=== PATIENT | female | born 1970 | race Caucasian/White ===

== ENCOUNTER 2024-03-02 07:41 | Inpatient (IN) | payer BC, SELFPAY ==
[2024-03-02] VITALS (31 sets, daily range): BP systolic 117–153; BP diastolic 63–85; PULSE 81–107; RESP 14–20; TEMP 36.8–38.1; O2SAT 93–100; BMI 25.1
--- OUTSIDE RECORDS SUMMARY | 2024-03-02 07:44 | XMS_ITS | Clinical Summary ---
Author Organization [facility] Address [address] [place] [address]. [place] [address] Care Team Providers Care Hydrant Setter Name Role Phone Clinic, [facility] Primary Care Provider + Allergies No known active allergies Medications Multiple vitamin TABS 1 tab daily 5 Active levonorgestrel (MIRENA, 52 MG,) 20 MCG/24HR IUDIndications: Encounter for insertion of Mirena IUD 1 each (20 mcg) by Intrauterine route once for 1 dose 1 each 8 Active Active Problems No known active problems Immunizations Name Administration Dates Next Due Tdap (Adult) Unspecified Formulation 06/05/2008 Family History Medical History Relation Comments Hypertension Mother Relation Status Comments Father Alive Mother Alive Social History Tobacco Use Types Packs/Day Years Used Date Smoking Tobacco: Never Smokeless Tobacco: Never Alcohol Use Standard Drinks/Week Comments Yes 0 (1 standard drink = 0.6 oz pur e alcohol) occ PHQ-2 Answer Date Recorded PHQ-2 Score 0 02/26/2018 Adolescent Education Answer Date Record ed Getting School Help Needed Not on file 11/25 Comments No Sex and Gender Information Value Date Recorded Sex Assigned at Not on file Legal Sex Female 3:36 AM CIRCUIT BOARD INSPECTOR Gender Identity Not on file Sexual Orientation Not on file Last Filed Vital Signs Vital Sign Reading Time Taken Comments Blood Pressure 154/110 02/20/2023 10:19 AM CIRCUIT BOARD INSPECTOR Pulse 69 02/20/2023 10:19 AM CIRCUIT BOARD INSPECTOR Temperature 37 C (98.6 F) 02/20/2023 10:19 AM CIRCUIT BOARD INSPECTOR Respiratory Rate 18 02/20/2023 10:19 AM CIRCUIT BOARD INSPECTOR Oxygen Saturation 100% 02/20/2023 10:19 AM CIRCUIT BOARD INSPECTOR Inhaled Oxygen Concentration - - Weight 85.7 kg (188 lb 15 oz) 02/20/2023 10:19 A M CIRCUIT BOARD INSPECTOR Height 172.7 cm (5' 8) 04/30/2017 8:45 AM CDT Body Mass Index 28.73 04/30/2017 8:45 AM CDT Plan of Treatment Health Maintenance Due Date Last Done Comments ADVANCE CARE PLANNING 1969 ANNUAL REVIEW OF HM ORDERS 1969 CT COLONOGRAPHY 1969 FIT 1969 FLEX SIG 1969 GLUCOSE 1969 sDNA (Cologuard) 1969 HIV SCREENING 1984 HEPATITIS C SCREENING 11/09/1987 HEPATITIS B IMMUNIZATION (1 of 3 - 19+ 3-dose series) 1988 LIPID 2009 DTAP/TDAP/TD IMMUNIZATION (2 - Td or Tdap) 06/05/2018 06/05/2008, 06/05/2008, 11/09/1998 Pneumococcal Vaccine: 50+ Years (1 of 1 - PCV) 11/09/2019 ZOSTER IMMUNIZATION (1 of 2) 11/09/2019 YEARLY PREVENTIVE VISIT 07/06/2023 07/06/19 23, 11/18/2020, 02/08/2017 COVID-19 Vaccine ( - season) 2023 01/25/2021, 07/16/2020, 07/16/2020, Additional history exists INFLUENZA VACCINE (#1) 2023 1, 12/14/2009, 11/16/2008 MAMMO SCREENING 12/29/2023 12/28/2021 PHQ-2 (once per calendar year) 2024 02/08/2017 PAP 07/05/2025 07/05/2022, 02/08/2017 COLONOSCOPY 02/08/2031 02/08/2021 COLORECTAL CANCER SCREENING 02/08/2031 RSV VACCINE (1 - 1-dose 75+ series) 2044 HPV IMMUNIZATION Aged Out No longer e ligible based on patient's age to complete this topic MENINGITIS IMMUNIZATION Aged Out No l onger eligible based on patient's age to complete this topic RSV MONOCLONAL ANTIBODY Aged Out No l onger eligible based on patient's age to complete this topic Procedures Procedure Name Priority Date/Time Associated Diagnosis Comments PAP IMAGED THIN LAYER SCREEN Routine 02/08/2017 8:24 AM CIRCUIT BOARD INSPECTOR Routine general medical examination at a health care facility from Last 3 Months or Most Recently Relevant to Health Maintenance Results * Pap imaged thin layer screen with HPV - recommended age 30 - 65 years (select HPV order below) (02/08/2017 8:24 AM CIRCUIT BOARD INSPECTOR) PAP NIL COPATH Copath Report Patient Name: LUIS FERNANDO MCWILLIAMS MR#: [id number] Specimen #: [id number] Collected: 02/08/2017 Received: 02/09/2017 Reported: 02/13/2017 10:04 Ordering Phy(s): CHENCHO NAIR For improved result formatting, select 'View Enhanced Report Format' under Linked Documents section. SPECIMEN/STAIN PROCESS: Pap imaged thin layer prep screening (Surepath, FocalPoint with guided screening) Pap-Cyto x 1 SOURCE: Cervical, endocervical Pap imaged thin layer prep screening (Surepath, FocalPoint with guided screening) SPECIMEN ADEQUACY: Satisfactory for evaluation. -Transformation zone component absent. CYTOLOGIC INTERPRETATION: Negative for intraepithelial lesion or malignancy Electronically signed out by: ADOLFO Hall (ASCP) Processed and screened at [facility], [facility] CLINICAL HISTORY: Currently not having periods, Intra-Uterine Device, Papanicolaou Test Limitations: Cervical cytology is a screening test with limited sensitivity; regular screening is critical for cancer prevention; Pap tests are primarily effective for the diagnosis/preventi on of squamous cell carcinoma, not adenocarcinomas or other cancers. TESTING LAB LOCATION: [address] [address] COLLECTION SITE: Client: [facility] Location: [facility] (R) TYRESE Cytologic material (specimen) 02/08/2017 8:24 AM CIRCUIT BOARD INSPECTOR 02/09/2017 9:37 AM CIRCUIT BOARD INSPECTOR Chencho Nair MD LAB - [facility] Final Result COPATH from Last 3 Months or Most Recently Relevant to Health Maintenance Insurance BCBS OUT OF STATE BCBS OUT OF [facility] Care Teams Hydrant Setter Relationship Specialty Start Date End Date [facility], [facility] [address] [place] [phone] PCP - General 02/20/23
--- OUTSIDE RECORDS SUMMARY | 2024-03-02 07:44 | XMS_ITS | Continuity of Care Document ---
Author Name [facility] User [email or web address] Address Unknown Organization Unknown Address Unknown Encounters FILTER APPLIED:Only known Encounters with Admission Date within the last 5 years Encounter Location Admission Discharge Billing Code Stand Up Comedian Deshaun elizabeth [facility]
--- OUTSIDE RECORDS SUMMARY | 2024-03-02 07:44 | XMS_ITS | Referral Summary ---
Author Organization [facility] Address [address] [place] [address]. [place] [address] Care Team Providers Care Ventilation Equipment Tender Name Role Phone [facility] [place] Primary Care Provider + Allergies No known active allergies Medications Multiple vitamin TABS 1 tab daily 5 Active levonorgestrel (MIRENA, 52 MG,) 20 MCG/24HR IUDIndications: Encounter for insertion of Mirena IUD 1 each (20 mcg) by Intrauterine route once for 1 dose 1 each 8 Active Active Problems No known active problems Immunizations Name Administration Dates Next Due Tdap (Adult) Unspecified Formulation 06/05/2008 Social History Tobacco Use Types Packs/Day Years [...] on file Legal Sex Female 3:36 AM DIRECTOR OF SCIENTIFIC RESEARCH Gender Identity Not on file Sexual Orientation Not on file Last Filed Vital Signs Vital Sign Reading Time Taken Comments Blood Pressure 154/110 02/20/2023 10:19 AM DIRECTOR OF SCIENTIFIC RESEARCH Pulse 69 02/20/2023 10:19 AM DIRECTOR OF SCIENTIFIC RESEARCH Temperature 37 C (98.6 F) 02/20/2023 10:19 AM DIRECTOR OF SCIENTIFIC RESEARCH Respiratory Rate 18 02/20/2023 10:19 AM DIRECTOR OF SCIENTIFIC RESEARCH Oxygen Saturation 100% 02/20/2023 10:19 AM DIRECTOR OF SCIENTIFIC RESEARCH Inhaled Oxygen Concentration - - Weight 85.7 kg (188 lb 15 oz) 02/20/2023 10:19 A M DIRECTOR OF SCIENTIFIC RESEARCH Height 172.7 cm (5' 8) 04/30/2017 8:45 AM CDT Body Mass Index 28.73 04/30/2017 8:45 AM CDT Plan of Treatment Not on file Procedures Procedure Name Priority Date/Time Associated Diagnosis Comments PAP IMAGED THIN LAYER SCREEN Routine 02/08/2017 8:24 AM DIRECTOR OF SCIENTIFIC RESEARCH Routine general medical examination at a health care facility from Last 3 Months or Most Recently Relevant to Health Maintenance Results * Pap imaged thin layer screen with HPV - recommended age 30 - 65 years (select HPV order below) (02/08/2017 8:24 AM DIRECTOR OF SCIENTIFIC RESEARCH) PAP LINDA Reed Report Patient Name: LUIS FERNANDO MCWILLIAMS MR#: [id number] Specimen #: [id number] Collected: 02/08/2017 Received: 02/09/2017 Reported: 02/13/2017 10:04 [...] ADOLFO Hall (ASCP) Processed and screened at [facility] CLINICAL HISTORY: Currently not having periods, Intra-Uterine Device, Papanicolaou Test Limitations: Cervical cytology is a screening test with limited sensitivity; regular screening is critical for cancer prevention; Pap tests are primarily effective for the diagnosis/preventi on of squamous cell carcinoma, not adenocarcinomas or other cancers. TESTING LAB LOCATION: [facility] [address] [id number] COLLECTION SITE: Client: [facility] Location: [facility] (R) COPATH Cytologic material (specimen) 02/08/2017 8:24 AM DIRECTOR OF SCIENTIFIC RESEARCH 02/09/2017 9:37 AM DIRECTOR OF SCIENTIFIC RESEARCH Chencho Nair MD LAB - [facility] SPE RENEE Final Result COPATH from Last 3 Months or Most Recently Relevant to Health Maintenance Insurance BCBS OUT OF STATE BCBS OUT OF STATE Care Teams Ventilation Equipment Tender Relationship Specialty Start Date End Date Clinic, [facility] [address] [place] [address] PCP - General 02/20/23
--- OUTSIDE RECORDS SUMMARY | 2024-03-02 07:44 | XMS_ITS | Encounter Summary ---
Author Organization [facility] Address [address] [place] [address]. [place] [address] Care Team Providers Care Purification Supervisor Name Role Phone Iliana Nair MD Primary Care Provider [phone] Iliana Nair MD Unavailable [phone] [facility] Primary Care Provider + Reason for Visit * Reason Onset Date Comments Outreach 12/02/2018 [facility] MAMMO ATT 1 Encounter Details Date Type Department Care Team (Late st Contact Info) Description 12/02/2018 Telephone [facility] Centralized Scheduling [address] [place] [address] [place] [address] [place] [address] Outreach ([facility] MAMMO ATT 1) Social History Tobacco Use Types Packs/Day Years Used Date Smoking Tobacco: Never Smokeless Tobacco: Never Alcohol Use Standard Drinks/Week Comments Yes 0 (1 standard drink = 0.6 oz pur e alcohol) occ PHQ-2 Answer Date Recorded PHQ-2 Score 0 02/26/2018 Comments No Sex and Gender Information Value Date Recorded Sex Assigned at Not on file Legal Sex Female 3:36 AM BOXING INSTRUCTOR Gender Identity Not on file Sexual Orientation Not on file documented as of this encounter Miscellaneous Notes * Telephone Encounter - Janiya Grajeda - 12/02/2018 4:38 PM CDT 12/02/2018 Attempt 1 Contacted patient in regards to scheduling VIP mammogram, [place] for 12/09. Message on voicemail Patient is also due for - Comments: Outreach [facility] [employer] Caller KEYLA documented in this encounter Plan of Treatment Not on file documented as of this encounter Visit Diagnoses Not on filedocumented in this encounter Care Teams Purification Supervisor Relationship Specialty [place] [address] [place] [address] PCP - General Family Practice 02/08/17 02/19/[address] [phone] PCP - General 02/20/23 [place] [address] [place] [address] Assigned PCP 02/11/17 02/28/20 documented as of this encounter
--- NOTE | 2024-03-02 08:17 | CRLHL7_ITS ---
For Patients: As a result of the Century Cures Act, medical imaging exams and procedure reports are released immediately into your electronic medical record. You may view this report before your referring provider. If you have questions, please contact your health care provider. INDICATION: Abdominal pain. TECHNIQUE: CT abdomen and pelvis acquired with IV contrast. 81 mL IV Isovue 370. COMPARISON: None available. FINDINGS: Lower chest: Mild atelectasis in the lung bases. Liver: The liver is enlarged measuring 17.7 cm in length but normal in attenuation. No focal liver lesion. Gallbladder and bile ducts: Unremarkable. Spleen: Unremarkable. Pancreas: The pancreatic duct is dilated in the head and proximal body of the pancreas measuring up to 9 mm in diameter. No visible pancreatic or intraductal mass. Adrenal glands: Unremarkable. Kidneys: 2 mm nonobstructing stone in the mid right kidney. No hydronephrosis. There are a few subcentimeter hypoattenuating renal lesions too small to accurately characterize. There are few left renal parapelvic cysts. GI tract: The appendix is dilated measuring up to 13 millimeters in diameter with moderate Lori appendiceal fat stranding. Appendicoliths are present. No surrounding free fluid or free air. There are few scattered colonic diverticuli. No evidence of acute diverticulitis. No bowel obstruction. Vascular structures: Normal caliber abdominal aorta. Lymph nodes: Unremarkable. Miscellaneous: No ascites. No free air. Pelvic Organs: Unremarkable. Bones: Mild degenerative changes in the hips. No acute osseous abnormality. No suspicious bone lesion. IMPRESSION: 1. Acute uncomplicated appendicitis. 2. The pancreatic duct is dilated in the head and body of the pancreas. Recommend follow-up with dedicated pancreatic MRI/MRCP to exclude an obstructing lesion. 3. Hepatomegaly. Please note that all CT scans at this facility use dose modulation, iterative reconstruction, and/or weight-based dosing when appropriate to reduce radiation dose to as low as reasonably achievable. Dictated by Yanelis Ruiz MD @ 03/02/2024 9:48:56 AM (Electronically Signed)
--- NOTE | 2024-03-02 08:19 | ED_ITS ---
HPI - Abdominal Pain General Date Seen: 03/02/24 Chief Complaint: Abdominal Pain Stated Complaint: abdominal pain/12 hours Time Seen by Provider: 03/02/24 07:57 Source: patient Mode of arrival: ambulatory Limitations: no limitations History of Present Illness HPI narrative: Patient is a 53-year-old female presenting to the emergency department for abdominal pain. She states last night she started having periumbilical abdominal pain that has since radiated to her right lower quadrant. She denies ever having symptoms like this before. States she has not been able to sleep much due to the pain. Nothing seems to make it better. Does have some mild upper abdominal pain on the right side but states that definitely worse on the lower aspect. Denies vomiting but is having waves of nausea. Has not ate anything since 18:00 yesterday. Has had a previous ovarian cyst procedure but no other abdominal or pelvic surgeries. Denies constipation, diarrhea, chest pain, shortness of breath, weakness, numbness, fevers, chills, fatigue, dysuria, vaginal bleeding or discharge. Does states she is tired but that is because she has not slept. Denies pain like this before. No other concerns noted. Related Data Home Medications ?Medication ?Instructions ?Recorded ?Confirmed estradiol 0.05 mg-norethindrone 1 patch topical 2XW 03/02/24 03/02/24 0.14 mg/24 hr semiwkly transderm patch (CombiPatch) Allergies Allergy/AdvReac Type Severity Reaction Status Date / Time No Known Drug Allergies Allergy Verified 03/02/24 07:50 Review of Systems Status of ROS Reports: 10 or more systems reviewed and unremarkable except as noted in History and below [facility] Social History Smoking Status: Never smoker Do you use any of these nicotine containing products: None How often do you have a drink containing alcohol: never AUDIT-C Alcohol total score: 0 Non-prescribed substance use: denies use Exam Narrative: Exam Narrative: Const: Well-nourished, Well-developed, in mild distress Eyes: PERRL, no conjunctival injection, and symmetrical lids HENT: Atraumatic external nose and ears. Moist mucous membranes. Neck: Symmetric, trachea midline, No thyromegaly. CVS: RRR, No murmurs or gallops. Peripheral pulses 2+ and equal in all extremities RESP: Unlabored respiratory effort. Clear to auscultation bilaterally. GI: Notable Tenderness to the periumbilical and right lower quadrant along with some mild tenderness to the epigastric and right upper quadrant. Guarding noted. Positive McBurney's point. Nondistended. No rebound. MSK:Extremities w/o deformity, Normal Active ROM Skin: Warm, Dry. No rashes or lesions. Neuro: Normal Muscle tone, No focal neurological deficits. Psych: Awake, Alert, & Oriented x3. Appropriate mood and affect. Const: Vital Signs, click to edit/add: Vital Signs - 24 hr 03/02/24 07:44 03/02/24 09:33 Temperature 99.0 F Pulse Rate [Right Pulse Oximeter] 89 81 Respiratory Rate 18 18 Blood Pressure [Ri ght Upper Arm] 136/85 140/75 H Pulse Oximetry 99 97 Oxygen Delivery Me thod Room Air Room Air Course Vital Signs Vital signs: Initial Vital Signs Temperature 99.0 F 03/02/24 07:44 Temperature Source Temporal Artery Scan 03/02/24 07:44 Pulse Rate 89 03/02/24 07:44 Respiratory Rate 18 03/02/24 07:44 Blood Pressure 136/85 03/02/24 07:44 Blood Pressure Mean 102 03/02/24 07:44 Blood Pressure Position Sitting 03/02/24 07:44 Pulse Oximetry 99 03/02/24 07:44 Oxygen Delivery Method Room Air 03/02/24 07:44 Vital Signs Temperature 99.0 F 03/02/24 07:44 Pulse Rate 89 03/02/24 07:44 Respiratory Rate 18 03/02/24 07:44 Blood Pressure 136/85 03/02/24 07:44 Pulse Oximetry 99 03/02/24 07:44 Oxygen Delivery Method Room Air 03/02/24 07:44 Temperature 99.0 F 03/02/24 07:44 Pulse Rate 81 03/02/24 09:33 Respiratory Rate 18 03/02/24 09:33 Blood Pressure 140/75 H 03/02/24 09:33 Pulse Oximetry 97 03/02/24 09:33 Oxygen Delivery Method Room Air 03/02/24 09:33 Medications Administered Medications: Discontinued Medications Generic Name Dose Route Start Last Admin Trade Name Freq PRN Reason Stop Dose Admin Morphine Sulfate 4 mg 03/02/24 08:17 03/02/24 08:36 Morphine 4 Mg/Ml Inj IVP 03/02/24 08:18 4 mg ONCE ONE Administration Ondansetron HCl 4 mg 03/02/24 08:17 03/02/24 08:36 Ondansetron 2 Mg/Ml Inj IVP 03/02/24 08:18 4 mg ONCE ONE Administration MDM - Abdominal Pain MDM Narrative Medical decision making narrative: Patient is a 53-year-old female presenting for abdominal pain. My my concern at this time is appendicitis. Differential also includes SBO, gallbladder/liver disease, pancreatitis, gastroenteritis, colitis, constipation. Will do a CBC, CMP, urinalysis, lipase. Will also order a troponin and EKG as this could be abnormal presentation for ACS. Will give her morphine for pain and Zofran for n ausea. CT scan with IV contrast of the abdomen pelvis ordered Lab work returns with a white count of 14.91. No other concerning finding seen within lab work. Viral swabs were negative. EKG and troponin showed no concerning finding. Considering the length of symptoms I do not believe repeat troponin is necessary. CT scan returned showing acute uncomplicated appendicitis. She also has a dilated pancreatic duct. Radiology does recommend MRCP. Considering all the patient's pain is in the lower abdomen and normal lipase and normal LFTs seems unlikely to be an acute obstruction if any. She did have some very mild upper abdominal tenderness but this pain seemed more referred pain from her lower abdomen than and acute separate pain in the area. She even states that is much less painful up in her epigastric compared to her periumbilical and right lower quadrant. The on-call surgeon recommends outpatient MRCP. I informed the patient of this. Lab Data Labs: Lab Results 03/02/24 03/02/24 03/02/24 Range/Units 08:42 08:43 08:45 WBC 14.91 H (4.50-11.00) K/uL RBC 4.17 (4.00-5.20) m/uL Hgb 12.6 (12.0-16.0) gm/dL Hct 36.6 (33.0-51.0) % MCV 88 (80-100) fL MCH 30 (26-34) pg MCHC 34 (32-36) gm/dL RDW Coeff of Risa 11.9 (11.5-15.5) % Plt Count 273 (140-440) K/uL Neut % (Auto) 91.8 H (42.0-72.0) % Lymph % (Auto) 3.0 L (20-44) % Davidson % (Auto) 4.8 (0.0-11.0) % Eos % (Auto) 0.0 (0.0-7.0) % Baso % (Auto) 0.1 (0.0-3.0) % Neut # (Auto) 13.70 H (1.7-7.0) K/uL Lymph # (Auto) 0.40 L (0.90-2.90) K/uL Davidson # (Auto) 0.70 (0.00-0.90) K/UL Eos # (Auto) 0.00 (0.00-0.50) K/uL Baso # (Auto) 0.00 (0.00-0.30) K/uL Abs Immat Gran (auto) 0.00 (0.00-0.30) K/uL Imm/Tot Granulo (auto) 0.3 % Sodium 136 (135-149) mmol/L Potassium 3.6 (3.6-5.1) mmol/L Chloride 106 (96-114) mmol/L Carbon Dioxide 24 (20-32) mmol/L Anion Gap 6 L (7-15) mEq/L BUN 16 (7-30) mg/dL Creatinine 0.7 (0.5-1.5) mg/dL Estimated Creat Clear 92.68 Estimated GFR 103 ml/min Glucose 120 H (60-115) mg/dL Calcium 8.7 (8.4-10.6) mg/dL Total Bilirubin 1.0 (0.1-1.5) mg/dL AST 20 (12-35) U/L ALT 19 (4-35) U/L Alkaline Phosphatase 46 (40-150) U/L Total Protein 6.7 (6.0-8.3) g/dL Albumin 4.2 (3.3-5.0) g/dL Lipase 129 (23-300) U/L SARS-CoV-2 (PCR) Negative SARS-CoV-2 (Negative) Influenza Type A (PCR) Negative PCR FLU A (Negative) Influenza Type B (PCR) Negative PCR FLU B (Negative) RSV (PCR) Negative PCR RSV (Negative) POC Creatinine 0.9 (0.6-1.3) mg/dl POC Troponin I 0.00 L (0.01-0.04) ng/ml Imaging Data CT scan abdomen and pelvis: Attestation: I have reviewed the pertinent imaging results. Radiologist's impression: 1. Acute uncomplicated appendicitis. 2. The pancreatic duct is dilated in the head and body of the pancreas. Recommend follow-up with dedicated pancreatic MRI/MRCP to exclude an obstructing lesion. 3. Hepatomegaly. Please note that all CT scans at this facility use dose modulation, iterative reconstruction, and/or weight-based dosing when appropriate to reduce radiation dose to as low as reasonably achievable. Dictated by Yanelis Ruiz MD @ 03/02/2024 9:48:56 AM ECG Data Attestation: I personally reviewed and interpreted this ECG as follows: Prior ECG tracings: available for review Interpretation: Normal sinus rhythm with a rate of 74 beats per minute, normal intervals, normal axis, no ST or T-wave abnormalities Discharge Plan Discharge Clinical Impression: Dilated pancreatic duct Acute appendicitis Qualifiers: Acute appendicitis type: unspecified acute appendicitis type Qualified Code(s): K35.80 - Unspecified acute appendicitis Patient Disposition: Admitted As Observation Condition: Stable Prescriptions: No Action CombiPatch 0.05-0.14 mg/24 hr patch semiweekly 1 patch topical 2XW Follow Up/Referrals: Provider,Not a Local [Primary Care Provider] -
[2024-03-02] MEDS: MORPHINE 4 MG/ML INJ IVP ×2 (08:36→11:16)
[2024-03-02] MEDS: ONDANSETRON 2 MG/ML inj 4 MG IVP (08:36)
--- OUTSIDE RECORDS SUMMARY | 2024-03-02 08:42 | XMS_ITS | Clinical Summary ---
Author Organization [facility] Address [place], [place] [address] Care Team Providers Care Avionics Mechanic Name Role Phone Ervin Velez Primary Care Provider Allergies No known active allergies Medications MULTIPLE VITAMIN ORAL TAB 1 tab daily ? 0 5 Active albuterol HFA (ProAir HFA) 90 mcg/actuation inhalerIndication s:Bronchitis with bronchospasm Inhale 1-2 Puffs by mouth every 6 hours if needed for Shortness of Breath 1st choice. 1 Each 3 Active estradiol-norethi ndrone, 0.05-0.14 mg, (COMBIPATCH) 0.05-0.14 mg/24 hr patchIndications: Menopause Apply 1 Patch on dry, clean, hairless skin every Sunday and . 24 Patch 4 4 Active Active Problems Problem Noted Date Diagnosed Date Pap smear for cervical cancer screening 06/20/19 23 Overview (08/11/2022): 06/2022 NIL/HPV negative. Plan: Pap/HPV due 06/2027. Family history of colonic polyps, due 02/08 Overview (02/08/2021): Colonoscopy normal 2020 - due 2025 Other acne 04/07/2005 Colon cancer screening Resolved Problems Problem Noted Date Diagnosed Date Resolved Date Lump or mass in breast 04/19/200006/04 CYST, SEBACEOUS 02/23/2000 04/03/2005 Immunizations Name Administration Dates Next Due COVID-19 vaccine (Moderna 10 0mcg/0.5mL) JOSE GUADALUPE GUADARRAMA 01/25/2021,07/16/2020,06/18/2020 Influenza, IIV3 (Age >=3 years) 12/13/2010,12/14,11/16/2008 TD, UNSPECIFIED 06/05/2008 Td (Age >=7 Years) 11/09/1998 Tdap 06/05/2008 Family History Medical History Relation Name Comments Other Brother 1 hodgkins lympho ma Good Health Brother 2 x 2 Good Health Daughter Colon polyps Father Stroke Maternal Aunt 1 Cancer Maternal Aunt 2 unsure - may be bone Stroke Maternal Grandfather Heart attack Maternal Grandmother Cancer Maternal Uncle seizure - ray g? Hypertension Mother Stroke Mother Thyroid Disease Mother Cancer Paternal Aunt liver Aortic aneurysm Paternal Uncle Other Sister MS, seizure dis order, thinks she may have had PE, she Good Health Son Relation Name Status Comments Brother 1 Alive Brother 2 x 2 Alive Daughter Alive Father Alive Maternal Aunt 1 Maternal Aunt 2 Maternal Grandfather Maternal Grandmother Maternal Uncle Mother Alive Paternal Aunt Paternal Grandfather Paternal Grandmother Paternal Uncle Sister (Age 45) Son Alive Social History Tobacco Use Types Packs/Day Years Used Date Smoking Tobacco: Never Smokeless Tobacco: Never Tobacco Cessation:Counseling Given: Not Answered Alcohol Use Standard Drinks/Week Comments Yes 2 (1 standard drink = 0.6 oz pur e alcohol) social PHQ-2 Answer Date Recorded PHQ-2 TOTAL SCORE 0 06/06/2023 Social Connections Answer Date Recorded Frequency of Communication with Friends and Fami ly 0 06/29/2022 Financial Resource Strain Answer Date R ecorded Difficulty of Paying Living Expenses 3 06/29/2022 Difficulty of Paying Living Expenses Not on file 06/29/2022 Food Insecurity Answer Date Recorded Worried About Running Out of Food in the Last Ye ar 1 06/29/2022 Transportation Needs Answer Date Record ed Lack of Transportation (Medical) 1 06/29/2022 Housing Stability Answer Date Recorded Unable to Pay for Housing in the Last Year 1 06/29/2022 Comments No Sex and Gender Information Value Date Recorded Sex Assigned at Not on file Legal Sex Female 6:09 AM SEAT INSTALLER Gender Identity Not on file Sexual Orientation Not on file 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 Not on file Not on file Not on ene e Obstetrics History Para Term AB IAB SAB Ectopic Multiple Livin g Live Births 2 2 2 0 0 0 0 0 0 2 Date Outcome GA Total Labor Labor/2nd/3rd Weight Sex Type Anes PTL Beata A1 A5 Name Clin Term Term Last Filed Vital Signs Vital Sign Reading Time Taken Comments Blood Pressure 100/60 06/06/2023 8:13 AM CDT Pulse 78 06/06/2023 8:13 AM CDT Temperature 36.8 C (98.2 F) 06/01/2022 1:12 PM CDT Respiratory Rate 16 02/08/2021 11:30 AM SEAT INSTALLER Oxygen Saturation 99% 06/01/2022 1:12 PM CDT Inhaled Oxygen Concentration - - Weight 86.6 kg (191 lb) 06/06/2023 8:13 AM CDT Height 172.7 cm (5' 8) 06/06/2023 8:13 AM CDT Body Mass Index 29.04 06/06/2023 8:13 AM CDT Plan of Treatment Health Maintenance Due Date Last Done Comments HIV for age 15-65 1984 Hepatitis C screening for age 18-79 11/09/1987 Tetanus booster 06/05/2018 06/05/2008, 05/20, 11/09/1998 Pneumococcal series for age 50+ (1 of 1 - PCV) 11/09/2019 Zoster (shingles) series for age 50+ (1 of 2) 11/09/2019 COVID-19 vaccine series ( - 2023- season) 2023 01/25/2021, 07/16/2020, 06/18/2020 Influenza for age 50-64 10/21/2023 12/14/19 11, 12/14/2009, 11/16/2008 Mammogram for age 45-75 05/28/2024 05/29/19 24, 12/28/2021, 12/17/2020, Additional history exists BMI (ht and wt on same day) for age 18+ 06/05/2024 06/06/2023, 05/22/2023, 07/05/2022, Additional history exists Depression screening for age 12+ 06/06/2024 06/07/2023, 06/06/2023, 07/05/2022, Additional history exists Lipids for age 45-75 11/18/2025 11/18/2020, 09/23/2009, 07/23/2006 Colonoscopy through age 75 02/08/2026 02/08/2021 Pap test for age 21-65 07/06/2027 , 07/05/2022, 02/08/2017 (Verified in Care Everywhere or Patient Record), Additional history exists Tdap Completed 06/05/2008 Pneumococcal series for age 6-49 Aged Out No longer eligible based on patient's age to complete this topic Procedures Procedure Name Priority Date/Time Associated Diagnosis Comments XR MAMMO LOR BILAT SCREEN Routine 05/29/2023 11:47 AM CDT Encounter for screening mammogram for malignant neoplasm of breast HPV HIGH RISK Routine 07/05/2022 8:35 AM CDT Screening for cervical cancer COLONOSCOPY 02/08/2021 10:37 AM SEAT INSTALLER LIPID PANEL Routine 11/18/2020 9:02 AM CDT Screening for cholesterol level from Last 3 Months or Most Recently Relevant to Health Maintenance Results * XR MAMMO LOR BILAT SCREEN (05/29/2023 11:47 AM CDT) Anatomical Region Laterality Modality BREASTS, Breast Left, Breast Right Bilateral Mammography Impressions 05/29/2023 4:00 PM CDT There is no radiographic evidence for malignancy. Recommend annual mammograms. MAMMOGRAM ASSESSMENT: ACR 1 Negative PATIENTS: You will also receive a letter with your examination results in an easy to read format. If you have questions about your results, please contact your referring provider. Narrative 05/29/2023 4:00 PM CDT For Patients: As a result of the Century Cures Act, medical imaging exams and procedure reports are released immediately into your electronic medical record. You may view this report before your referring provider. If you have questions, please contact your health care provider. XR MAMMO LOR BILAT SCREEN [[id number]] CLINICAL HISTORY: This is an asymptomatic 52 y.o. patient. INDICATION FOR EXAM: Mammogram Screening. TECHNIQUE: CC & MLO views were obtained. This study was evaluated with the assistance of Computer-Aided Detection. Breast Tomosynthesis was used in interpretation. COMPARISON FILM: Yes 12/28/21 [facility] 12/17/20 [facility] FINDINGS: The breasts are extremely dense, which lowers the sensitivity of mammography. There are no dominant masses, suspicious micro calcifications or areas of architectural distortion. us Ervin Velez PA MAMMO Final Resul t * HPV HIGH RISK (07/05/2022 8:35 AM CDT) TYPE 16 Negative Negative 07/07/2022 5:28 PM CDT [facility] TYPE 18 Negative Negative 07/07/2022 5:28 PM CDT [facility] OTHER HIGH RISK TYPES Negative Negative 07/07/2022 5:28 PM CDT [facility] Other (Cervical) Non-Blood / Unknown 07/05/2022 8:35 AM CDT 07/05/2022 4:35 PM CDT Narrative [facility] - 07/07/2022 5:28 PM CDT HPV types 16, 18, 31, 33, 35, 39, 45, 51, 52, 56, 58, 59, 66 and 68 DNA were undetectable or below the pre-set threshold. Methodology: Steve Su 4800 HPV Test us Von Smith MD MICROBIOLOGY F inal Result [facility] [address] [place] [address], [place] * COLONOSCOPY (02/08/2021 10:37 AM SEAT INSTALLER) 02/08/2021 10:3 7 AM SEAT INSTALLER Narrative Transcriptions Leo Goel MD - 02/08/2021 11:16 AM CST Endoscopy Patient Name: Mohit Mcwilliams Procedure Date: 02/08/2021 Gender: Female Date of : 1970 Admit Type: Ambulatory Procedure: Colonoscopy Proceduralist: Leo Goel MD Referring MD: Ervin Velez Indications/Pre-Op Diagnosis: Colon cancer screening in patient atincreased risk: Family history of 1st-degree relative with colon polyps Medications: Monitored Anesthesia Care Procedure Description: The patient had risks, benefits and alternatives explained to andgave informed consent. The patient had a stable cardiopulmonary status and judged an adequate candidate for conscious sedation. The endoscope was passed through the anus and advanced to theterminal ileum, with identification of the appendiceal orifice and IC valve.The colonoscopy was performed without difficulty. The patient toleratedthe procedure well. The quality of the bowel preparation was good. The ileocecal valve, appendiceal orifice, and rectum were photographed. Complications: No immediate complications. Estimated Blood Loss & Specimen: Estimated blood loss: none. Specimen collected: None Findings: The colon appeared normal. The perianal and digital rectal examinations were normal. Impressions/Post-Op Diagnosis: - The colon appeared normal. - No specimens collected. Recommendation: - Repeat colonoscopy in 5 years for surveillance. Leo Goel MD 02/08/2021 11:16:31 AM This report has been signed electronically. Note Initiated On: 02/08/2021 10:37 AM Total Procedure Duration Time 0 hours 14 minutes 3 seconds Scope Withdrawal Time 0 hours 7 minutes 59 seconds Leo Goel MD PROCEDURE ORD Final Result * LIPID PANEL (11/18/2020 9:02 AM CDT) CHOLESTEROL,TOTAL 199 100 - 199 mg/dL 11/18/2020 3:36 PM CDT [facility] TRIGLYCERIDES 76 <150 mg/dL 11/18/2020 3:36 PM CDT [facility] HDL CHOLESTEROL 57 >40 mg/dL 3:36 PM CDT [facility] NON-HDL CHOLESTEROL 142 <145 mg/dl 11/18/2020 3:36 PM CDT [facility] CHOL/HDL RATIO 3.49 <4.50 11/18/2020 3:36 PM CDT [facility] LDL CHOLESTEROL 127 <=130 mg/dL 11/18/2020 3:36 PM CDT [facility] VLDL CHOLESTEROL 15 <=30 mg/dL 11/18/2020 3:36 PM CDT [facility] PROVIDER ORDERED STATUS RANDOM 11/18/2020 3:36 PM CDT [facility] Blood BLOOD SPECIMEN / Unknown Venipuncture / Unknown 11/18/2020 9:02 AM CDT 11/18/2020 9:03 AM CDT us Ervin GUZMÁN CHEMISTRY Final Resul t [facility] [address] [place] [address], [place] from Last 3 Months or Most Recently Relevant to Health Maintenance Insurance [place] Advance Directives * Full Code (Latest Code Status on File) Date Activated Date Inactivated Comments 02/08/2021 9:48 AM 02/08/2021 1:53 PM Question Answer Comments Code Status Discussion: Reviewed Preferences Care Teams Avionics Mechanic Relationship Specialty [place] [address] [place] [address] PCP - General Physician Acute Care Surgeon 12/28/21
--- OUTSIDE RECORDS SUMMARY | 2024-03-02 08:42 | XMS_ITS | Continuity of Care Document ---
Author Name NwHIN [facility] Address Unknown Organization Unknown Address Unknown Encounters FILTER APPLIED:Only known Encounters with Admission Date within the last 5 years Encounter Location Admission Discharge Billing Code Napper Grinder Deshaun elizabeth Emergency [facility]
--- OUTSIDE RECORDS SUMMARY | 2024-03-02 08:42 | XMS_ITS | Clinical Summary ---
Author Organization [facility] Address [address] [place] [address]. [place] [address] Care Team Providers Care Steam Bone Press Tender Name Role Phone [facility], [facility] Primary Care Provider + Allergies No known [...] on file Legal Sex Female 3:36 AM REFRIGERATOR MOVER Gender Identity Not on file Sexual Orientation Not on file Last Filed Vital Signs Vital Sign Reading Time Taken Comments Blood Pressure 154/110 02/20/2023 10:19 AM REFRIGERATOR MOVER Pulse 69 02/20/2023 10:19 AM REFRIGERATOR MOVER Temperature 37 C (98.6 F) 02/20/2023 10:19 AM REFRIGERATOR MOVER Respiratory Rate 18 02/20/2023 10:19 AM REFRIGERATOR MOVER Oxygen Saturation 100% 02/20/2023 10:19 AM REFRIGERATOR MOVER Inhaled Oxygen Concentration - - Weight 85.7 kg (188 lb 15 oz) 02/20/2023 10:19 A M REFRIGERATOR MOVER Height 172.7 cm (5' 8) 04/30/2017 8:45 [...] THIN LAYER SCREEN Routine 02/08/2017 8:24 AM REFRIGERATOR MOVER Routine general medical examination at a health care facility from Last 3 Months or Most Recently Relevant to Health Maintenance Results * Pap imaged thin layer screen with HPV - recommended age 30 - 65 years (select HPV order below) (02/08/2017 8:24 AM REFRIGERATOR MOVER) PAP NIL COPATH Copath Report Patient Name: LUIS FERNANDO MCWILLIAMS MR#: [id number] Specimen #: [id number] Collected: 02/08/2017 Received: 02/09/2017 Reported: 02/13/2017 10:04 [...] ADOLFO Hall (ASCP) Processed and screened at [facility], [facility] CLINICAL HISTORY: Currently not having periods, Intra-Uterine Device, Papanicolaou Test Limitations: Cervical cytology is a screening test with limited sensitivity; regular screening is critical for cancer prevention; Pap tests are primarily effective for the diagnosis/preventi on of squamous cell carcinoma, not adenocarcinomas or other cancers. TESTING LAB LOCATION: [address] [address] COLLECTION SITE: Client: [facility] Location: [facility] (R) TYRESE Cytologic material (specimen) 02/08/2017 8:24 AM REFRIGERATOR MOVER 02/09/2017 9:37 AM REFRIGERATOR MOVER Chencho Nair MD LAB - [facility] Final Result COPATH from Last 3 Months or Most Recently Relevant to Health Maintenance Insurance BCBS OUT OF STATE BCBS OUT OF [facility] Care Teams Steam Bone Press Tender Relationship Specialty Start Date End Date [facility], [facility] [address] [place] [phone] PCP - General 02/20/23
--- OUTSIDE RECORDS SUMMARY | 2024-03-02 08:42 | XMS_ITS | Referral Summary ---
Author Organization [facility] Address [address] [place] [address]. [place] [address] Care Team [address] Care [address] Project Manager Name Role Phone [facility] Primary Care Provider + Allergies No known [...] on file Legal Sex Female 3:36 AM ELEMENTARY SCHOOL LIBRARIAN Gender Identity Not on file Sexual Orientation Not on file Last Filed Vital Signs Vital Sign Reading Time Taken Comments Blood Pressure 154/110 02/20/2023 10:19 AM ELEMENTARY SCHOOL LIBRARIAN Pulse 69 02/20/2023 10:19 AM ELEMENTARY SCHOOL LIBRARIAN Temperature 37 C (98.6 F) 02/20/2023 10:19 AM ELEMENTARY SCHOOL LIBRARIAN Respiratory Rate 18 02/20/2023 10:19 AM ELEMENTARY SCHOOL LIBRARIAN Oxygen Saturation 100% 02/20/2023 10:19 AM ELEMENTARY SCHOOL LIBRARIAN Inhaled Oxygen Concentration - - Weight 85.7 kg (188 lb 15 oz) 02/20/2023 10:19 A M ELEMENTARY SCHOOL LIBRARIAN Height 172.7 cm (5' 8) 04/30/2017 8:45 AM CDT Body Mass Index 28.73 04/30/2017 8:45 AM CDT Plan of Treatment Not on file Procedures Procedure Name Priority Date/Time Associated Diagnosis Comments PAP IMAGED THIN LAYER SCREEN Routine 02/08/2017 8:24 AM ELEMENTARY SCHOOL LIBRARIAN Routine general medical examination at a health care facility from Last 3 Months or Most Recently Relevant to Health Maintenance Results * Pap imaged thin layer screen with HPV - recommended age 30 - 65 years (select HPV order below) (02/08/2017 8:24 AM ELEMENTARY SCHOOL LIBRARIAN) PAP LINDA [facility] Report Patient Name: LUIS FERNANDO MCWILLIAMS MR#: [id number] Specimen #: [id number] Collected: 02/08/2017 Received: 02/09/2017 Reported: 02/13/2017 10:04 [...] ADOLFO Hall (ASCP) Processed and screened at [facility] CLINICAL HISTORY: Currently not having periods, Intra-Uterine Device, Papanicolaou Test Limitations: Cervical cytology is a screening test with limited sensitivity; regular screening is critical for cancer prevention; Pap tests are primarily effective for the diagnosis/preventi on of squamous cell carcinoma, not adenocarcinomas or other cancers. TESTING LAB LOCATION: [facility] [address] [id number] COLLECTION SITE: Client: [facility] Location: [facility] (R) COPATH Cytologic material (specimen) 02/08/2017 8:24 AM ELEMENTARY SCHOOL LIBRARIAN 02/09/2017 9:37 AM ELEMENTARY SCHOOL LIBRARIAN Chencho Nair MD LAB - [facility] SPE RENEE Final Result COPATH from Last 3 Months or Most Recently Relevant to Health Maintenance Insurance BCBS OUT OF STATE BCBS OUT OF STATE Care Teams Rd Project Manager Relationship Specialty Start Date End Date Clinic, [facility] [address] [place] [address] PCP - General 02/20/23
--- OUTSIDE RECORDS SUMMARY | 2024-03-02 08:42 | XMS_ITS | Encounter Summary ---
Author Organization [facility] Address [address] [place] [address]. [place] [address] Care Team Providers Care Salesperson Household Appliances Name Role Phone Iliana Nair MD Primary Care Provider [phone] Iliana Nair MD Unavailable [phone] [facility], [facility] Primary Care Provider + Reason for Visit * Reason Onset Date Comments Outreach 12/02/2018 VIP MAMMO ATT 1 Encounter Details Date Type Department Care Team (Late st Contact Info) Description 12/02/2018 Telephone [facility] Centralized Scheduling [address] [place] [address] [place] [address] [place] [address] Outreach ([facility]IP MAMMO ATT 1) [...] on file Legal Sex Female 3:36 AM DERRICK HAND Gender Identity Not on file Sexual Orientation Not on file documented as of this encounter Miscellaneous Notes * Telephone Encounter - Janiya Grajeda - 12/02/2018 4:38 PM CDT 12/02/2018 Attempt 1 Contacted patient in regards to scheduling VIP mammogram, [place] for 12/09. Message on voicemail Patient is also due for - Comments: Outreach Talent Acquisition Sourcer KEYLA documented in this encounter Plan of Treatment Not on file documented as of this encounter Visit Diagnoses Not on filedocumented in this encounter Care Teams Salesperson Household Appliances Relationship Specialty [place] [address] [place] [address] PCP - General Family Practice 02/08/17 02/19/[address] [phone] PCP - General 02/20/23 [place] [address] [place] [address] Assigned PCP 02/11/17 02/28/20 documented as of this encounter
[2024-03-02 08:52] LABS: Creatinine, Point-of-Care* 0.9 mg/dl (0.6-1.3)
[2024-03-02 08:53] LABS: Basophils Percent Auto 0.1 % (0.0-3.0); Hematocrit 36.6 % (33.0-51.0); Hemoglobin* 12.6 gm/dL (12.0-16.0); Immature Granulocytes Pct Auto 0.3 %; Mean Corpuscular HGB Conc 34 gm/dL (32-36); Mean Corpuscular Hemoglobin 30 pg (26-34); Mean Corpuscular Volume 88 fL (80-100); Monocytes Percent Auto 4.8 % (0.0-11.0); Neutrophils Percent Auto 91.8 % (42.0-72.0); Platelet Count* 273 K/uL (140-440); RDW Coefficient of Variation % 11.9 % (11.5-15.5); Red Blood Count 4.17 m/uL (4.00-5.20); White Blood Count* 14.91 K/uL (4.50-11.00)
[2024-03-02 09:01] LABS: Slide Review Reflex No
[2024-03-02 09:11] LABS: Albumin* 4.2 g/dL (3.3-5.0); Chloride* 106 mmol/L (96-114); Lipase* 129 U/L (23-300); Potassium* 3.6 mmol/L (3.6-5.1); Sodium* 136 mmol/L (135-149)
[2024-03-02 09:13] LABS: Creatinine* 0.7 mg/dL (0.5-1.5); Est. Creatinine Clearance* 92.68; Estimated Glomerular Filt Rate 103 ml/min
[2024-03-02 09:14] LABS: Alanine Aminotransferase* 19 U/L (4-35); Alkaline Phosphatase* 46 U/L (40-150); Anion Gap 6 mEq/L (7-15); Aspartate Amino Transferase* 20 U/L (12-35); Blood Urea Nitrogen* 16 mg/dL (7-30); Calcium* 8.7 mg/dL (8.4-10.6); Carbon Dioxide* 24 mmol/L (20-32); Glucose* 120 mg/dL (60-115); Total Protein* 6.7 g/dL (6.0-8.3)
[2024-03-02 09:31] LABS: PCR FLU A Negative PCR FLU A (Negative); PCR FLU B Negative PCR FLU B (Negative); PCR RSV Negative PCR RSV (Negative); SARS PCR* Negative SARS-CoV-2 (Negative)
--- NOTE | 2024-03-02 11:29 | ED.NURSE ---
Pt report given to kingston ARCHER. Pt to room 258.
[2024-03-02 11:33] LABS: Appearance Urine Clear (Clear); Bilirubin Urine Negative (Negative); Blood Urine Trace-intact (Negative); Color Urine Yellow (Yellow); Glucose Urine Negative (Negative); Ketones Urine 1+ (Negative); Leukocyte Esterase Urine Negative (Negative); Nitrite Urine Negative (Negative); Protein Urine Negative (Negative); Specific Gravity Urine 1.015 (1.000-1.030); Urobilinogen Urine 0.2 (0.2-1.0)
--- OUTSIDE RECORDS SUMMARY | 2024-03-02 11:37 | XMS_ITS | Clinical Summary ---
Author Organization [facility] Address [place], [place] [address] Care Team Providers Care Utilization Reviewer Name Role Phone Ervin Velez Primary Care [...] on file Legal Sex Female 6:09 AM E COMMERCE SPECIALIST Gender Identity Not on file Sexual Orientation [...] CDT Respiratory Rate 16 02/08/2021 11:30 AM E COMMERCE SPECIALIST Oxygen Saturation 99% 06/01/2022 1:12 PM CDT [...] for cervical cancer COLONOSCOPY 02/08/2021 10:37 AM E COMMERCE SPECIALIST LIPID PANEL Routine 11/18/2020 9:02 AM CDT [...] care provider. XR MAMMO LOR BILAT SCREEN [[id number]] CLINICAL HISTORY: This is an asymptomatic 52 y.o. patient. INDICATION FOR EXAM: Mammogram Screening. TECHNIQUE: CC & MLO views were obtained. This study was evaluated with the assistance of Computer-Aided Detection. Breast Tomosynthesis was used in interpretation. COMPARISON FILM: Yes 12/28/21 [facility] 12/17/20 [facility] FINDINGS: The breasts are extremely dense, which lowers the sensitivity of mammography. There are no dominant masses, suspicious micro calcifications or areas of architectural distortion. us Ervin Velez PA MAMMO Final Resul t * HPV HIGH RISK (07/05/2022 8:35 AM CDT) TYPE 16 Negative Negative 07/07/2022 5:28 PM CDT [facility] TYPE 18 Negative Negative 07/07/2022 5:28 PM CDT [facility] OTHER HIGH RISK TYPES Negative Negative 07/07/2022 5:28 PM CDT [facility] Other (Cervical) Non-Blood / Unknown 07/05/2022 8:35 AM CDT 07/05/2022 4:35 PM CDT Narrative [facility] - 07/07/2022 5:28 PM CDT HPV types 16, 18, 31, 33, 35, 39, 45, 51, 52, 56, 58, 59, 66 and 68 DNA were undetectable or below the pre-set threshold. Methodology: Steve Su 4800 HPV Test us Von Smith MD MICROBIOLOGY F inal Result [facility] [address] [place] [address], [place] * COLONOSCOPY (02/08/2021 10:37 AM E COMMERCE SPECIALIST) 02/08/2021 10:3 7 AM E COMMERCE SPECIALIST Narrative Transcriptions Leo Goel MD - 02/08/2021 [...] - 199 mg/dL 11/18/2020 3:36 PM CDT [facility] TRIGLYCERIDES 76 <150 mg/dL 11/18/2020 3:36 PM CDT [facility] HDL CHOLESTEROL 57 >40 mg/dL 3:36 PM CDT [facility] NON-HDL CHOLESTEROL 142 <145 mg/dl 11/18/2020 3:36 PM CDT [facility] CHOL/HDL RATIO 3.49 <4.50 11/18/2020 3:36 PM CDT [facility] LDL CHOLESTEROL 127 <=130 mg/dL 11/18/2020 3:36 PM CDT [facility] VLDL CHOLESTEROL 15 <=30 mg/dL 11/18/2020 3:36 PM CDT [facility] PROVIDER ORDERED STATUS RANDOM 11/18/2020 3:36 PM CDT [facility] Blood BLOOD SPECIMEN / Unknown Venipuncture / Unknown 11/18/2020 9:02 AM CDT 11/18/2020 9:03 AM CDT us Ervin GUZMÁN CHEMISTRY Final Resul t [facility] [address] [place] [address], [place] from Last 3 Months or Most Recently Relevant to Health Maintenance [place] Advance Directives * Full Code (Latest Code Status on File) Date Activated Date Inactivated Comments 02/08/2021 9:48 AM 02/08/2021 1:53 PM Question Answer Comments Code Status Discussion: Reviewed Preferences Care Teams Utilization Reviewer Relationship Specialty [place] [address] [place] [address] PCP - General Physician Cork Pressing Machine Operator 12/28/21
--- OUTSIDE RECORDS SUMMARY | 2024-03-02 11:37 | XMS_ITS | Continuity of Care Document ---
Author Name NwHIN User [facility] Address Unknown Organization Unknown Address Unknown Encounters FILTER APPLIED:Only known Encounters with Admission Date within the last 5 years Encounter Location Admission Discharge Billing Code House Worker General Deshaun leizabeth Emergency [facility]
--- OUTSIDE RECORDS SUMMARY | 2024-03-02 11:37 | XMS_ITS | Encounter Summary ---
Author Organization [place] Address [address] [place] [address]. [place] [address] Care Team Providers Care Spray Drier Operator Helper Name Role Phone Iliana Nair MD Primary Care Provider [phone] Iliana Nair MD Unavailable [phone] [facility], [facility] Primary Care Provider + Reason for Visit * Reason Onset Date Comments Outreach 12/02/2018 VIP MAMMO ATT 1 Encounter Details Date Type Department Care Team (Late st Contact Info) Description 12/02/2018 Telephone [place] Centralized Scheduling [address] [place] [address] [place] [address] [place] [address] Outreach (VIP MAMMO ATT 1) [...] on file Legal Sex Female 3:36 AM LICENSED PESTICIDE APPLICATOR Gender Identity Not on file Sexual Orientation Not on file documented as of this encounter Miscellaneous Notes * Telephone Encounter - Janiya Grajeda - 12/02/2018 4:38 PM CDT 12/02/2018 Attempt 1 Contacted patient in regards to scheduling VIP mammogram, [place] for 12/09. Message on voicemail Patient is also due for - Comments: Outreach Carpet Tile Layer KEYLA documented in this encounter Plan of Treatment Not on file documented as of this encounter Visit Diagnoses Not on filedocumented in this encounter Care Teams Spray Drier Operator Helper Relationship Specialty [place] [address] [place] [address] PCP - General Family Practice 02/08/17 02/19/[address] [phone] PCP - General 02/20/23 [place] [address] [place] [address] Assigned PCP 02/11/17 02/28/20 documented as of this encounter
--- OUTSIDE RECORDS SUMMARY | 2024-03-02 11:37 | XMS_ITS | Referral Summary ---
Author Organization [place] Address [address] [place] [address]. [place] [address] Care Team Providers Care Cement Paver Name Role Phone [facility] [place] Primary Care Provider + Allergies No known [...] on file Legal Sex Female 3:36 AM KITCHEN WORKER Gender Identity Not on file Sexual Orientation Not on file Last Filed Vital Signs Vital Sign Reading Time Taken Comments Blood Pressure 154/110 02/20/2023 10:19 AM KITCHEN WORKER Pulse 69 02/20/2023 10:19 AM KITCHEN WORKER Temperature 37 C (98.6 F) 02/20/2023 10:19 AM KITCHEN WORKER Respiratory Rate 18 02/20/2023 10:19 AM KITCHEN WORKER Oxygen Saturation 100% 02/20/2023 10:19 AM KITCHEN WORKER Inhaled Oxygen Concentration - - Weight 85.7 kg (188 lb 15 oz) 02/20/2023 10:19 A M KITCHEN WORKER Height 172.7 cm (5' 8) 04/30/2017 8:45 AM CDT Body Mass Index 28.73 04/30/2017 8:45 AM CDT Plan of Treatment Not on file Procedures Procedure Name Priority Date/Time Associated Diagnosis Comments PAP IMAGED THIN LAYER SCREEN Routine 02/08/2017 8:24 AM KITCHEN WORKER Routine general medical examination at a health care facility from Last 3 Months or Most Recently Relevant to Health Maintenance Results * Pap imaged thin layer screen with HPV - recommended age 30 - 65 years (select HPV order below) (02/08/2017 8:24 AM KITCHEN WORKER) PAP LINDA Reed Report Patient Name: LUIS FERNANDO MCWILLIAMS MR#: [id number] Specimen #: [id number] Collected: 02/08/2017 Received: 02/09/2017 Reported: 02/13/2017 10:04 [...] ADOLFO Hall (ASCP) Processed and screened at [facility] CLINICAL HISTORY: Currently not having periods, Intra-Uterine Device, Papanicolaou Test Limitations: Cervical cytology is a screening test with limited sensitivity; regular screening is critical for cancer prevention; Pap tests are primarily effective for the diagnosis/preventi on of squamous cell carcinoma, not adenocarcinomas or other cancers. TESTING LAB LOCATION: [facility] [address] [phone] COLLECTION SITE: Client: [facility] Location: [facility] (R) COPATH Cytologic material (specimen) 02/08/2017 8:24 AM KITCHEN WORKER 02/09/2017 9:37 AM KITCHEN WORKER Chencho Nair MD LAB - [facility] SPE RENEE Final Result COPATH from Last 3 Months or Most Recently Relevant to Health Maintenance Insurance BCBS OUT OF STATE BCBS OUT OF STATE Care Teams Cement Paver Relationship Specialty Start Date End Date Clinic, [facility] [address] [place] [address] PCP - General 02/20/23
--- OUTSIDE RECORDS SUMMARY | 2024-03-02 11:37 | XMS_ITS | Clinical Summary ---
Author Organization [place] Address [address] [place] [address]. [place] [address] Care Team Providers Care Charger Operator Name Role Phone Clinic, [facility] Primary Care Provider + Allergies No [...] on file Legal Sex Female 3:36 AM CONVENTIONS ASSISTANT Gender Identity Not on file Sexual Orientation Not on file Last Filed Vital Signs Vital Sign Reading Time Taken Comments Blood Pressure 154/110 02/20/2023 10:19 AM CONVENTIONS ASSISTANT Pulse 69 02/20/2023 10:19 AM CONVENTIONS ASSISTANT Temperature 37 C (98.6 F) 02/20/2023 10:19 AM CONVENTIONS ASSISTANT Respiratory Rate 18 02/20/2023 10:19 AM CONVENTIONS ASSISTANT Oxygen Saturation 100% 02/20/2023 10:19 AM CONVENTIONS ASSISTANT Inhaled Oxygen Concentration - - Weight 85.7 kg (188 lb 15 oz) 02/20/2023 10:19 A M CONVENTIONS ASSISTANT Height 172.7 cm (5' 8) 04/30/2017 8:45 [...] THIN LAYER SCREEN Routine 02/08/2017 8:24 AM CONVENTIONS ASSISTANT Routine general medical examination at a health care facility from Last 3 Months or Most Recently Relevant to Health Maintenance Results * Pap imaged thin layer screen with HPV - recommended age 30 - 65 years (select HPV order below) (02/08/2017 8:24 AM CONVENTIONS ASSISTANT) PAP NIL COPATH Copath Report Patient Name: LUIS FERNANDO MCWILLIAMS MR#: [id number] Specimen #: [id number] Collected: 02/08/2017 Received: 02/09/2017 Reported: 02/13/2017 10:04 [...] ADOLFO Hall (ASCP) Processed and screened at [facility] CLINICAL HISTORY: Currently not having periods, Intra-Uterine Device, Papanicolaou Test Limitations: Cervical cytology is a screening test with limited sensitivity; regular screening is critical for cancer prevention; Pap tests are primarily effective for the diagnosis/preventi on of squamous cell carcinoma, not adenocarcinomas or other cancers. TESTING LAB LOCATION: [address] [address] COLLECTION SITE: Client: [facility] Location: [facility] (R) TYRESE Cytologic material (specimen) 02/08/2017 8:24 AM CONVENTIONS ASSISTANT 02/09/2017 9:37 AM CONVENTIONS ASSISTANT Chencho Nair MD LAB - [facility] CLINICAL TRACEY DURAN Final Result COPATH from Last 3 Months or Most Recently Relevant to Health Maintenance Insurance BCBS OUT OF STATE BCBS OUT OF [facility] Care Teams Charger Operator Relationship Specialty Start Date End Date [facility], [facility] [address] [place] [phone] PCP - General 02/20/23
[2024-03-02 11:41] LABS: RBC Urine 0-2 (0-2); Squamous Epithelial Cell Urine Moderate (None-Few); WBC Urine 0-2 (0-5)
[2024-03-02] MEDS: PIPERACILLIN/TAZOBACTAM 3.375 GM in 0.9 % SODIUM CHLORIDE Mini-bag 100 ML IVPB ×3 (12:54→23:19)
[2024-03-02] MEDS: HYDROmorphone 0.5 mg/0.5 ml inj IVP ×2 (12:59→18:04)
--- NOTE | 2024-03-02 13:18 | P.GSHP_ITS ---
History of Present Illness History of Present Illness Date Seen: 03/02/24 Chief complaint: abdominal pain/12 hours Narrative: Mohit Mcwilliams is a 53 year old female who presented to the emergency department with worsening abdominal pain. The pain started yesterday after dinner. It was more generalized but now is mainly epigastric and right lower quadrant. She says that the majority of her pain is on the right lower side. That is where she feels discomfort with moving and can not seem to find a comfortable position. She has never had pain like this before. She does report some nausea and emesis. Denies any diarrhea. No fevers at home. Her abdominal surgical history is positive for ovarian cystectomy. She is a nonsmoker and otherwise healthy. Review of Systems Status of ROS: Reports: 10 or more systems reviewed and unremarkable except as noted in History and below PFSH PFS Social History What is your current living situation?: I presently have a place to live Problems where you live: no known problems Problems where you live details: N/A In the past 12 months, utilities in danger of being shut off: no In past 12 months, lack of transportation kept you from medical appts, meetings, work, or getting things needed for daily living: no In the past 12 mos, have been you worried that your food would run out before you had money to buy more?: never true In the past 12 mos, the food you bought just didn't last and you didn't have money to buy more?: never true Highest level of school completed/degree received: Associate degree: academic program Smoking Status: Never smoker Do you use any of these nicotine containing products: None Second hand tobacco smoke exposure: No How often do you have a drink containing alcohol: monthly or less How often do you have six or more drinks on one occasion: Never AUDIT-C Alcohol total score: 1 Non-prescribed substance use: denies use Caffeine: Yes (cup daily) How often does anyone, including family, friends and others, physically hurt you : never How often does anyone, including family, friends and others, insult or talk down to you: never How often does anyone, including family, friends and others, threaten you with harm: never How often does anyone, including family, friends and others, scream or curse at you: never service: No Meds Home Medications and Allergies Home Medications ?Medication ?Instructions ?Recorded ?Confirmed ?Type estradiol 0.05 mg-norethindrone 1 patch topical 2XW 03/02/24 03/02/24 History 0.14 mg/24 hr semiwkly transderm patch (CombiPatch) Allergies Allergy/AdvReac Type Severity Reaction Status Date / Time No Known Drug Allergies Allergy Verified 03/02/24 07:50 Exam Narrative: Exam Narrative: General: Alert and oriented, no acute distress Respiratory: Equal breath rise, maintained on room air CV: Well perfused Abdomen: Soft, tender to palpation right lower quadrant with some guarding, no rebound. Nondistended. Mild epigastric tenderness with deep palpation with no guarding or rebound in this area Const: Vital Signs, click to edit/add: Vital Signs - 24 hr 03/02/24 07:44 03/02/24 09:33 03/02/24 10:05 Temperature 99.0 F Pulse Rate 83 Pulse Rate [Pulse Oximeter] Pulse Rate [Right Pulse Oximeter] 89 81 Respiratory Rate 18 18 Blood Pressure 132/79 Blood Pressure [Ri ght Arm] Blood Pressure [Ri ght Upper Arm] 136/85 140/75 H Pulse Oximetry 99 97 97 Oxygen Delivery Me od Room Air Room Air 03/02/24 10:06 03/02/24 10:15 03/02/24 10:30 Temperature Pulse Rate 83 101 H 89 Pulse Rate [Pulse Oximeter] Pulse Rate [Right Pulse Oximeter] Respiratory Rate Blood Pressure Blood Pressure [Ri ght Arm] Blood Pressure [Ri ght Upper Arm] Pulse Oximetry 96 98 97 Oxygen Delivery Me thod 03/02/24 10:31 03/02/24 10:45 03/02/24 11:00 Temperature Pulse Rate 90 92 93 Pulse Rate [Pulse Oximeter] Pulse Rate [Right Pulse Oximeter] Respiratory Rate Blood Pressure 146/82 H Blood Pressure [Ri ght Arm] Blood Pressure [Ri ght Upper Arm] Pulse Oximetry 97 98 98 Oxygen Delivery Me thod 03/02/24 11:02 03/02/24 11:42 03/02/24 12:01 Temperature 98.2 F Pulse Rate 96 Pulse Rate [Pulse Oximeter] 85 Pulse Rate [Right Pulse Oximeter] Respiratory Rate 18 18 Blood Pressure 147/83 H Blood Pressure [Ri ght Arm] 142/78 H Blood Pressure [Ri ght Upper Arm] Pulse Oximetry 96 100 100 Oxygen Delivery Me thod Room Air Room Air Results Results Labs: Leukocytosis (14.9), liver panel and lipase within normal limits. Abdomen CT scan report/results: report reviewed and image reviewed Progress Note:A&P Assessment and plan (1) Dilated pancreatic duct: Status: Acute Assessment and Plan: Incidental finding on CT scan. Patient does have some mild epigastric tenderness, but liver panel and lipase within normal limits. Would recommend patient undergo an MRCP as an outpatient for further evaluation. (2) Acute appendicitis: Status: Acute Assessment and Plan: CT scan confirmed acute appendicitis. Evidence of dilation of the appendix, fecaliths and surrounding inflammation consistent with an early, non perforated appendicitis. I discussed the treatment options with the patient including non-surgical and surgical options. I recommended laparoscopic appendectomy. The risks of surgery were reviewed with the patient including the risks of bleeding, post-operative wound or intra-abdominal infection, injury to abdominal structures and possible conversion to an open operation. We also discussed anesthetic complications including MS, stroke, respiratory failure and blood clots. The patient voiced an understanding of our conversation, had the opportunity to ask questions, agreed to accept the risks of surgery and asked that we proceed with surgery. -NPO -Zosyn -OR for laparoscopic appendectomy
[2024-03-02] MEDS: LACTATED RINGERS 1000 ML 500 ML 75 ML IV (13:28)
[2024-03-02] MEDS: BUPIVACAINE 0.25% 30 ML INJECTION (14:25)
--- NOTE | 2024-03-02 14:41 | PM.GSPRC ---
Operative Note Date of procedure: 03/02/24 Pre-op diagnosis: Acute appendicitis Post-op diagnosis: Same, perforated Type of Procedure: Laparoscopic appendectomy Indications: Patient is a 53-year-old female who presented to the emergency department with clinical workup and history consistent with acute appendicitis. This was confirmed on CT imaging. Risks and benefits of operative intervention were discussed at length with the patient. Risks included but was not limited to: Bleeding, infection, risk of damage to surrounding structures, possible need for additional procedures, possible need to convert to an open operation and postoperative complications such as pneumonia, pulmonary emboli or MS. All questions and concerns were addressed with the patient agreeing to proceed. Procedure Description: After discussing the risks and benefits of the procedure, the patient signed informed consent.? The operative site was marked and the patient was brought to the operating room and placed on the operating table in supine position.? Care was taken to pad the patient's pressure points.?? The patient was then intubated by anesthesia.?? The operative site was then prepped and draped in the usual sterile fashion.? A time-out was then performed. Entrance to the abdomen was obtained via a 5 mm optical trocar in the left upper quadrant. The abdomen was insufflated and briefly surveyed for any signs of injury. There were none. A 12 mm port was placed at the umbilicus as well as a 5 mm port in the left lower quadrant under direct vision. The patient was then placed in Trendelenburg position with the right side up. The small bowel was gently moved out of the way and the appendix was in view. The body of the appendix and the tip was dilated and necrotic in appearance. A small amount of dissection was necessary to free the appendix from the surrounding pelvic attachments. During manipulation of the specimen there was perforation in the body of the appendix with some contamination of stool. A mesenteric window was created between the base of the appendix and the mesoappendix. A 30 mm Endo-MAGALIS purple load stapler was then used to transect the appendix at its base. A 45 mm vascular load stapler was then used to take the mesoappendix. The staple lines were inspected for bleeding. There was none. The appendix was then removed from the abdomen using an Endo-Catch bag. The specimen was sent to pathology. The abdomen was irrigated until clear. All ports removed under direct visualization. The 12 mm port site fascia was closed with 0 Vicryl. The skin was then closed with absorbable subcuticular suture. Sterile dressings were then applied. Instrument sponge and needle counts were correct at the end of the case. The patient was then woken and transported to the PACU in stable condition. Findings: Perforated appendicitis Anesthesia: GETA Surgeon: Emelina Grant MD Estimated blood loss (mL): 10 Specimen: Appendix Condition: stable Disposition: PACU
--- NOTE | 2024-03-02 14:50 | P.ANES_ITS ---
Anesthesia Charges Start Date/Time Anesthesia Start Date: 03/02/24 Anesthesia Start Time: 13:28 Stop Date/Time Anesthesia Stop Date: 03/02/24 Anesthesia Stop Time: 14:49 Summary Emergency: [facility] Coding CPT Codes CPT Codes: ANESTH SURG LOWER ABDOMEN - 60689 ([id number]) P1 - NORMAL HEALTHY PATIENT, QZ - [facility] SVC W/O BURLAP SPREADER BY Additional Codes: Summary - Emergency: [facility] ([id number])
--- NOTE | 2024-03-02 14:50 | W.ANESCHARGE ---
Anesthesia Charges Start Date/Time Anesthesia Start Date: 03/02/24 Anesthesia Start Time: 13:28 Stop Date/Time Anesthesia Stop Date: 03/02/24 Anesthesia Stop Time: 14:49 Summary Emergency: SPOOL TENDER Coding CPT Codes CPT Codes: ANESTH SURG LOWER ABDOMEN - 55521 ([id number]) P1 - NORMAL HEALTHY PATIENT, QZ - SPOOL TENDER SVC W/O SOLAR ENERGY SYSTEM INSTALLER BY Additional Codes: Summary - Emergency: [facility]ER ([id number])
[2024-03-02] MEDS: LACTATED RINGERS 1000 ML 1,000 ML 125 ML IV (15:35)
--- NOTE | 2024-03-02 19:06 | PC.NURSE ---
End of shift-- Pleasant and cooperative, alert and oriented patient was admitted to Med-surg from ED via wheelchair. Pt to OR at 1330 and back from PACU at 1528. VSS and highest temp this shift 99.2F. LS CTA. 3x lap sites NIKO with steri strip intact. Site at umbilicus was oozing small amount of bloody drainage and was reinforced with a bandaid. She denied nausea and is tolerating clear liquids. Family was at bedside today and appears loving and supportive. Report to GIANNI Arango.
[2024-03-02] MEDS: HYDROCODONE-ACETAMIN 5-325 MG 1 TAB PO (21:38)
[2024-03-03] MEDS: LACTATED RINGERS 1000 ML 1,000 ML 125 ML IV (01:19)
[2024-03-03 02:49] VITALS: BP 117/63; PULSE 84; RESP 18; TEMP 37; O2SAT 94
[2024-03-03] MEDS: HYDROCODONE-ACETAMIN 5-325 MG 1 TAB PO ×4 (03:01→22:20)
[2024-03-03] MEDS: PIPERACILLIN/TAZOBACTAM 3.375 GM in 0.9 % SODIUM CHLORIDE Mini-bag 100 ML IVPB ×4 (05:35→23:42)
[2024-03-03 06:44] LABS: Basophils Percent Auto 0.1 % (0.0-3.0); Hematocrit 31.8 % (33.0-51.0); Hemoglobin* 10.9 gm/dL (12.0-16.0); Immature Granulocytes Pct Auto 0.1 %; Lymphocytes Percent Auto 5.9 % (20-44); Mean Corpuscular HGB Conc 34 gm/dL (32-36); Mean Corpuscular Hemoglobin 30 pg (26-34); Mean Corpuscular Volume 89 fL (80-100); Monocytes Percent Auto 6.9 % (0.0-11.0); Platelet Count* 236 K/uL (140-440); RDW Coefficient of Variation % 12.2 % (11.5-15.5); Red Blood Count 3.59 m/uL (4.00-5.20); White Blood Count* 13.62 K/uL (4.50-11.00)
[2024-03-03 06:47] LABS: Slide Review Reflex No
--- NOTE | 2024-03-03 07:36 | PC.NURSE ---
Shift note ([id number]): Patient pleasant alert and oriented. Stand by assist with ambulation. Pt had been unable to void since surgery. Attempted to void at 2000 and again at 2330. Bladder scan showed 447mL at that time. Called and updated Dr Grant. Per Dr Grant can straight cath now or if pt wants to wait another two hours, can straight cath at that time if still not voiding on own. Patient still unable to void at 0200. 600mL of urine drained via straight catheter. LR running in IV at 125mL/hr. Tolerating clear liquid diet. Laps sites clean and dry. Bandaid still applied to umbilicus site. Given PRN [place] for abdominal pain and c/o headache.?
[2024-03-03] MEDS: ONDANSETRON 2 MG/ML inj IVP ×2 (08:47→17:06)
--- NOTE | 2024-03-03 09:55 | PM.GSPN ---
Subjective Subjective Date Seen: 03/03/24 Interval history: Patient is doing okay this morning. Tearful, has decided to move her a trip for the [place]. Was scheduled to leave this Sunday. Has some abdominal achiness with getting. Has not yet walked the halls. Did have to be straight cathed once overnight, has not yet voided this morning. Has been tolerating clear liquids with no nausea. Has not yet passed gas. Exam Narrative: Exam Narrative: General: Alert and oriented, nontoxic. Abdomen: Soft, appropriately tender in the right lower quadrant with no guarding or rebound. Some mild incisional tenderness around the umbilicus. A bandage in place clean/dry/intact. Const: Vital Signs, click to edit/add: Vital Signs - 24 hr 03/02/24 10:05 03/02/24 10:06 03/02/24 10:15 Temperature Pulse Rate 83 83 101 H Pulse Rate [Pulse Oximeter] Respiratory Rate Blood Pressure 132/79 Blood Pressure [Ri ght Arm] Pulse Oximetry 97 96 98 Oxygen Delivery Me thod 03/02/24 10:30 03/02/24 10:31 03/02/24 10:45 Temperature Pulse Rate 89 90 92 Pulse Rate [Pulse Oximeter] Respiratory Rate Blood Pressure 146/82 H Blood Pressure [Ri ght Arm] Pulse Oximetry 97 97 98 Oxygen Delivery Me thod 03/02/24 11:00 03/02/24 11:02 03/02/24 11:42 Temperature 98.2 F Pulse Rate 93 96 Pulse Rate [Pulse Oximeter] 85 Respiratory Rate 18 Blood Pressure 147/83 H Blood Pressure [Ri ght Arm] 142/78 H Pulse Oximetry 98 96 100 Oxygen Delivery Me thod Room Air 03/02/24 12:01 03/02/24 14:50 03/02/24 14:55 Temperature 100.6 F H Pulse Rate 107 H 99 Pulse Rate [Pulse Oximeter] Respiratory Rate 18 16 16 Blood Pressure 153/83 H 149/78 H Blood Pressure [Ri ght Arm] Pulse Oximetry 100 94 94 Oxygen Delivery Me thod Room Air Room Air Room Air 03/02/24 15:00 03/02/24 15:05 03/02/24 15:10 Temperature Pulse Rate 94 88 82 Pulse Rate [Pulse Oximeter] Respiratory Rate 14 14 14 Blood Pressure 150/71 H 138/71 134/65 Blood Pressure [Ri ght Arm] Pulse Oximetry 95 94 93 Oxygen Delivery Me thod Room Air Room Air Room Air 03/02/24 15:15 03/02/24 15:20 03/02/24 15:28 Temperature 99.5 F 99 F Pulse Rate 85 83 96 Pulse Rate [Pulse Oximeter] Respiratory Rate 14 14 18 Blood Pressure 129/65 127/64 127/67 Blood Pressure [Ri ght Arm] Pulse Oximetry 94 95 96 Oxygen Delivery Me thod Room Air Room Air Room Air 03/02/24 15:45 03/02/24 16:00 03/02/24 16:15 Temperature 99.2 F Pulse Rate 85 86 91 Pulse Rate [Pulse Oximeter] Respiratory Rate 18 16 18 Blood Pressure 122/64 118/63 119/63 Blood Pressure [Ri ght Arm] Pulse Oximetry 93 94 98 Oxygen Delivery Me thod Room Air Room Air Room Air 03/02/24 16:30 03/02/24 17:00 03/02/24 17:30 Temperature 99.2 F Pulse Rate 91 92 94 Pulse Rate [Pulse Oximeter] Respiratory Rate 16 18 18 Blood Pressure 123/70 124/73 129/69 Blood Pressure [Ri ght Arm] Pulse Oximetry 99 98 97 Oxygen Delivery Me thod Room Air Room Air Room Air 03/02/24 18:00 03/02/24 19:00 03/02/24 20:00 Temperature 99.3 F 99.3 F Pulse Rate 100 105 H 99 Pulse Rate [Pulse Oximeter] Respiratory Rate 18 18 16 Blood Pressure 129/77 122/69 124/73 Blood Pressure [Ri ght Arm] Pulse Oximetry 96 95 94 Oxygen Delivery Me thod Room Air Room Air Room Air 03/02/24 21:00 03/02/24 23:00 03/03/24 02:49 Temperature 99.2 F 99.1 F 98.6 F Pulse Rate 99 Pulse Rate [Pulse Oximeter] 96 84 Respiratory Rate 18 20 18 Blood Pressure 122/64 Blood Pressure [Ri ght Arm] 117/66 117/63 Pulse Oximetry 94 94 94 Oxygen Delivery Me thod Room Air Room Air Room Air Labs/Imaging Labs Labs: Leukocytosis (13) Imaging Imaging: No new imaging Progress Note:A&P Assessment and plan (1) Acute appendicitis: Status: Acute Assessment and Plan: Patient is postop day 1 laparoscopic appendectomy for perforated appendicitis. Low-grade fevers overnight, vital signs stable. Leukocytosis is trending down (14-->13). Recommend that patient continue on IV antibiotics. She did require a straight cath overnight, no need for Olivia at this time. Patient was encouraged to ambulate. Bladder scan as needed. -clear liquids, wait until passing gas before advancing diet -DC IV fluids -IV Zosyn -IV and p.o. pain meds as needed -encourage ambulation SCDs for DVT prophylaxis
[2024-03-03 09:59] VITALS: BP 122/57; PULSE 75; RESP 18; TEMP 36.6; O2SAT 94
[2024-03-03 13:54] VITALS: BP 121/64; PULSE 70; RESP 18; TEMP 36.8; O2SAT 97
[2024-03-03 19:00] VITALS: BP 139/79; PULSE 62; RESP 18; TEMP 36.3; O2SAT 98
--- NOTE | 2024-03-03 19:26 | PC.NURSE ---
End of shift [id number] ? Pt alert, oriented, cooperative. Pt was briefly teary with RN reporting that she was hungry and was ?overwhelmed? by her health changes related to her hospital stay, having to stay for an unplanned extra night, and needing to postpone an upcoming vacation.?RN provided emotional support, patient appeared to improve emotionally with RN support. Pt reported pain in abdomen rated as 1-5/10. Medication given per MAR along with ice pack on surgical site with pt reporting improved comfort. Pt reported nausea; medication given per MAR with nausea resolving. Pt up independently in room, tolerating RA and clear liquid diet. Pt unable to void during beginning part of shift, bladder scan performed per MD verbal order. Volume measured indicated need for straight catheterization per protocol. Pt able to void independently at end of shift, volume recorded. Pt appears to be resting comfortably in bed at end of shift with call light within reach. ??
--- NOTE | 2024-03-03 22:44 | PC.NURSE ---
Shift note ([id number]): Patient pleasant alert and oriented. Independent?with ambulation.?Voided 775mL this evening.?Passing gas. Tolerating crackers. PRN [place] given at 2220 for pain rated 4/10. Afebrile this shift.?
[2024-03-03 23:35] VITALS: BP 128/75; PULSE 62; PULSE 71; RESP 18; TEMP 36.8; O2SAT 96
[2024-03-04] MEDS: PIPERACILLIN/TAZOBACTAM 3.375 GM in 0.9 % SODIUM CHLORIDE Mini-bag 100 ML IVPB ×2 (05:19→11:50)
[2024-03-04 05:20] VITALS: BP 129/74; PULSE 87; RESP 18; TEMP 36.8; O2SAT 95
[2024-03-04 06:37] LABS: Basophils Absolute Auto 0.03 K/uL (0.00-0.30); Basophils Percent Auto 0.3 % (0.0-3.0); Eosinophils Absolute Auto 0.02 K/uL (0.00-0.50); Eosinophils Percent Auto 0.2 % (0.0-7.0); Hematocrit 33.3 % (33.0-51.0); Hemoglobin* 11.2 gm/dL (12.0-16.0); Immature Granulocytes Abs Auto 0.01 K/uL (0.00-0.30); Immature Granulocytes Pct Auto 0.1 %; Lymphocytes Percent Auto 5.2 % (20-44); Mean Corpuscular HGB Conc 34 gm/dL (32-36); Mean Corpuscular Hemoglobin 30 pg (26-34); Mean Corpuscular Volume 89 fL (80-100); Monocytes Percent Auto 6.2 % (0.0-11.0); Platelet Count* 248 K/uL (140-440); RDW Coefficient of Variation % 12.3 % (11.5-15.5); Red Blood Count 3.75 m/uL (4.00-5.20); White Blood Count* 10.93 K/uL (4.50-11.00)
[2024-03-04 06:39] LABS: Slide Review Reflex No
[2024-03-04] MEDS: HYDROCODONE-ACETAMIN 5-325 MG 1 TAB PO (06:44)
[2024-03-04] MEDS: ONDANSETRON 2 MG/ML inj IVP (06:45)
--- NOTE | 2024-03-04 06:53 | PC.NURSE ---
The pt has been alert and oriented x4; denied chest pain and short of breath; Spo2 has been in the 90s in RA. The abdominal is tender to touch; hypoactive bowel sounds in all 4 quadrants; the pt stated that she has been passing flatus, her diet is advanced to full liquid diet per MD?s order. The pt was a little bit nausea this AM; Zofran was given. 1 Tab of [place] given for 4/10 abdominal pain. The pt has been urinating without any distress. ?
[2024-03-04 07:42] VITALS: BP 135/84; PULSE 87; RESP 18; TEMP 36.6; O2SAT 94
[2024-03-04 07:45] VITALS: PULSE 87; RESP 18
--- NOTE | 2024-03-04 10:46 | P.DS_ITS ---
DS: Providers Provider Date Seen: 03/04/24 Date of admission: 03/03/24 09:35 Primary care physician: Not a Local Provider Admitting Clinician: Emelina Grant MD Attending Physician on discharge: Emelina Grant MD DS: Summary Hospital Course Hospital Course: Patient was admitted from the emergency department for acute appendicitis. She underwent a laparoscopic appendectomy. Intraoperatively evidence of perforation with some contamination. She stayed in the hospital postoperatively for IV antibiotics. Once the patient was afebrile for 24 hours and had normalization of her leukocytosis she was discharged with oral Augmentin, to complete a 10 day course. Postoperatively she needed to be straight cathed x2 for inability to urinate. At the time of discharge she was voiding spontaneously. Patient was ready to discharge once she was tolerating a regular diet, passing gas, her pain was well controlled with oral pain medications and she was ambulating without difficulty. Will plan to follow up with the patient in 2 weeks for a postop check. During her initial workup in the emergency department an incidental finding of a dilated pancreatic duct was noted on her CT scan. LFTs remained within normal limits, no elevation in her lipase. An order for an MRCP as an outpatient has been placed. A message was sent to her primary care provider to follow up with results. Time Spent with Patient Time attestation: Total time spent providing and/or coordinating discharge services: Exam Narrative: Exam Narrative: l general: Alert and oriented, no acute distress Abdomen: Soft, appropriately tender over incision sites. Steri-Strips clean/dry/intact. No guarding or rebound. Const: Vital Signs, click to edit/add: Vital Signs - 24 hr 03/03/24 13:54 03/03/24 19:00 03/03/24 23:35 Temperature 98.2 F 97.4 F L Pulse Rate [Pulse Oximeter] 70 62 62 Respiratory Rate 18 18 18 Blood Pressure [Ri ght Arm] 121/64 139/79 Pulse Oximetry 97 98 Oxygen Delivery Me thod Room Air Room Air 03/03/24 23:35 03/04/24 05:20 03/04/24 07:42 Temperature 98.2 F 98.3 F 97.8 F Pulse Rate [Pulse Oximeter] 71 87 87 Respiratory Rate 18 18 18 Blood Pressure [Ri ght Arm] 128/75 129/74 135/84 Pulse Oximetry 96 95 94 Oxygen Delivery Me thod Room Air Room Air Room Air 03/04/24 07:45 Temperature Pulse Rate [Pulse Oximeter] 87 Respiratory Rate 18 Blood Pressure [Ri ght Arm] Pulse Oximetry Oxygen Delivery Me thod DS: Data Data Completed and Pending Labs on day of discharge: Labs from last 24 hours 03/04/24 06:16 WBC 10.93 RBC 3.75 L Hgb 11.2 L Hct 33.3 MCV 89 MCH 30 MCHC 34 RDW Coeff of Risa 12.3 Plt Count 248 Neut % (Auto) 88.0 H Lymph % (Auto) 5.2 L [place] % (Auto) 6.2 Eos % (Auto) 0.2 Baso % (Auto) 0.3 Neut # (Auto) 9.60 H Lymph # (Auto) 0.60 L [place] # (Auto) 0.70 Eos # (Auto) 0.02 Baso # (Auto) 0.03 Abs Immat Gran (auto) 0.01 Imm/Tot Granulo (auto) 0.1 Discharge Plan Discharge Disposition: Home, Self-Care Date of Admission: 03/03/24 09:35 Attending Provider on Discharge: Emelina Grant Primary Care Provider: Provider,Not a Local Condition: Stable Anticipated Discharge Date/Time: 03/04/24 08:15 Discharge Medications: New hydrocodone-acetaminophen 5-325 mg tablet 1 tab PO Q6H PRN (Reason: pain) Qty: 20 0RF senna 8.6 mg capsule 8.6 mg PO DAILY PRN (Reason: constipation) Qty: 90 0RF amoxicillin-pot clavulanate 875-125 mg tablet 1 tab PO BID 8 Days Qty: 16 0RF Continued CombiPatch 0.05-0.14 mg/24 hr patch semiweekly 1 patch topical 2XW Discharge Orders: Discharge Order (Routine); Ordered 03/04/24 Ordered By: Emelina Grant Patient Education: Laparoscopic Appendectomy (DC) Additional Instructions: You were prescribed a narcotic pain medication. In addition you may supplement with Tylenol and/or ibuprofen. Be sure to not exceed greater than 4 g of Tylenol in a 24 hour period. While on narcotic pain medicine please take stool softeners. A prescription of stool softeners has been sent to the pharmacy. Stop if having greater than 2 stools per day. You have Steri-Strips dressings in place, allow these to fall off on their own. Okay to shower. Do not soak in a bath or swim for 2 weeks. Follow-up with Dr. Grant in 2-3 weeks. Please call if you are experiencing severe pain, nausea, vomiting, difficulty urinating, fever or not had a bowel movement in 4 days after surgery. Activity Level: No strenuous activity Activity Detail: Activity as tolerated. Avoid strenuous activity. No lifting greater than 20 lb for 2 weeks. Discharge Diet: Regular Follow Up Appointments: Emelina Grant MD [Staff Physician] - (Two week follow-up) Provider,Not a Local [Primary Care Provider] - Forms: [employer] Info Instructions
--- NOTE | 2024-03-04 13:33 | PC.NURSE ---
End of Shift: Patient pleasant and cooperative, A&O. VSS, afebrile. SpO2 maintained above 90% on RA. Dressings to abdomen C/D/I. Tolerating full liquid diet. IV removed with tip intact. Discharge instructions provided, all questions answered. Discharged to home with via wheelchair.
== END 2024-03-04 12:35 | disposition home or self-care (01) | DRG 225 ==
LOC: ED 10:25 → SS 11:35 → MEDSURG 11:38 → SS 03-03 09:47 → MEDSURG 03-03 16:21
PROVIDERS: Admitting Provider Surgery; Emergency Provider Student in an Organized Health Care Education/Training Program; Visit Provider Surgery
PROC: 0DTJ4ZZ Resection of Appendix, Percutaneous Endoscopic Approach (ICD-10-PCS; CPT 44970; principal; 2024-03-02 13:15)
DX: K35.32 Acute appendicitis with perforation, localized peritonitis, and gangrene, without abscess (principal); K86.89 Other specified diseases of pancreas
CPT/HCPCS: 00840; 36415; 74177; 80053; 81001; 82565; 83690; 84484; 85025; 87631; 88304; 93005; 99140; 99285; A9270; J0330; J0665; J1100; J1171; J1885; J2270; J2405; J2543; J2704; J2710; J3010; J7120; Q9967